=== PATIENT | female | born 1930 | race Caucasian/White ===

== ENCOUNTER → 2017-11-27 | Outpatient (CLI) | payer MEDICARE ==
[~2017-11-27] MED LIST: ACE3 PO; ACET-3017 PO; ALP5 PO; ASP325 PO; ASPI-1471 PO; ATENOLOL; CA C1TAB85 PO; CALC-635 PO; CALC500T42 PO; CYAN100015 PO; CYAN50TA3 PO; DAR100 PO; DETROL; ESTR0.62 PO; FAM20 PO; FAMO-67 PO; FLU IM; GUAI120L3 PO; HCTZ; HCTZ25 PO; IBUP-1618 PO; IBUP400T13 PO; KET10 PO; LANS15CA38 PO; MEC25 PO; MECL25TA9 PO; MELO-205 PO; MELOXICAM; MULT-885 PO; NIT100 PO; NYST15CR33 TP; PHENA200 PO; PNEU0.5D3 IM; POTA20PA10 PO; POTASSIUM; PREMARIN; PREVACID; SPIR25TA78 PO; TOLT2CAP7 PO; TOLT2TAB PO; VARI50KI IM
[2017-11-27 09:20] LABS: PLATELET COUNT, AUTOMATED 178 K/uL (150-450)
[2017-11-27 10:05] LABS: LDL CHOLESTEROL 90 mg/dl
== END ==
LOC: LAB 08:44
PROVIDERS: ATTEND Nurse Practitioner Family
DX: I10 Essential (primary) hypertension (principal)
CPT/HCPCS: 36415; 82040; 82247; 82310; 82374; 82435; 82465; 82565; 82947; 83718; 84075; 84132; 84155; 84295; 84443; 84450; 84460; 84478; 84520; 85025

== ENCOUNTER → 2017-12-10 | Outpatient (CLI) | payer MEDICARE ==
--- NOTE | 2017-12-11 13:41 | RADIOLOGY IMAGING REPORT ---
FACILITY: [facility] - [place] PATIENT NAME: Azeb Perez : 1930 MR: [id number] V: [id number] EXAM DATE: ORDERING PHYSICIAN: TEZ BEST TECHNOLOGIST: Location: [facility] [place] Patient: Azeb Perez : 1930 Visit/Account:[id number] Date of Sevice: 12/10/2017 WHOLE BODY BONE SCAN HISTORY: bone lesion right distal femur TECHNIQUE: 22.1 mCi technetium 99m HDP was injected intravenously. Delayed anterior and posterior wh ole body gamma camera images were obtained. Additional gamma camera images: Right left lateral skull COMPARISON: Two outside views of the right knee FINDINGS: Bone radiotracer activity: There is intense isotope uptake over the distal right femur and to a slig htly lesser extent distal left femur. This corresponds to a heterogeneous sclerotic lesion seen in t he distal metaphysis of the right femur on the outside study. No images of the left knee are availab le. Also noted are what appears to be degenerative type uptake over the medial aspect of both knees over the shoulders and wrists. Several small focal areas of isotope uptake over the lower cervical s pine most likely degenerative in nature Extraosseous radiotracer activity: Unremarkable. Renal and urinary collecting system activity: The right kidney appears small relative to the left IMPRESSION: There is intense uptake over the distal right femur and to lesser extent distal left femur. Two outs torsten views of the right knee demonstrate a irregular sclerotic lesion in the distal metaphysis of the right femur. Given the history of pain and increased uptake MR the knees with and without contrast r ecommended. Degenerative type uptake as described at multiple sites Report Dictated By: Vashti Downing MD at 12/11/2017 1:33 PM Report E-Signed By: Vashti Downing MD at 12/11/2017 1:37 PM WSN:[email or web address]
== END ==
LOC: NUC 01:38
PROVIDERS: ATTEND Nurse Practitioner Family
DX: M85.862 Other specified disorders of bone density and structure, left lower leg (principal); M85.861 Other specified disorders of bone density and structure, right lower leg
CPT/HCPCS: 78306; A9503

== ENCOUNTER → 2017-12-16 | Outpatient (CLI) | payer MEDICARE ==
--- NOTE | 2017-12-16 17:09 | RADIOLOGY IMAGING REPORT ---
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 In ligh t of the findings in the contralateral knee, the 4 mm lesion in the lateral femoral condyle of the le ft knee is most consistent with a benign intraosseous ganglion with reactive bone marrow edema. Report Dictated By: Cole Arndt at 12/17/2017 3:10 PM Report E-Signed By: Cole Arndt at 12/17/2017 3:11 PM ORIGINAL REPORT KNEE LEFT W W/O CONTRAST COMPARISON: Whole body bone scan 12/10/2017. Previous report described an "outside film of the right knee" which is not available. HISTORY: bilateral bony lesion - noted bone scan 12/11/17. TECHNIQUE: Pre and postcontrast multiplanar MRI of the left knee utilizing T1 weighted and fluid sens itive sequences. CONTRAST: 10 mL of MultiHance intravenously. FINDINGS: FLUID: Trace suprapatellar effusion without appreciable internal nodularity. 8 x 20 mm lobulated Syeda er's cyst with a thin internal septation. MENISCI: Suboptimal meniscal assessment due to the soft tissue mass protocol utilized. Posterior hor n of the medial meniscus appears small and irregular suggesting a horizontal tear. Lateral meniscus i s probably intact. TENDONS/LIGAMENTS: The cruciate and medial collateral ligaments, lateral collateral ligamentous comp charles and extensor mechanism are intact. The biceps and popliteus tendons are intact. MUSCLES: There is no muscle atrophy or edema. BONES/CARTILAGE: There is a 3 x 4 mm T2 hyperintense intramedullary lesion in the lateral femoral co ndyle with rim enhancement but no internal solid enhancement, and a thin collar of surrounding mild e nhancing bone marrow edema. This has an appearance which is fairly typical of an intraosseous ganglio n with surrounding bone marrow edema, but given the provided history and lack of a comparison plain f ilm, other possibilities are not excluded. There is mild focal bone marrow edema in the anterior margin of the tibial metaphysis just medial to the midline, nonspecific, possible contusion if there has been history of recent trauma. No well-defi adeline bone lesion appreciated at this site. Diffuse full-thickness lateral patellar facet articular cartilage loss with moderate subjacent subcho ndral edema. There is full-thickness cartilage loss lining the adjacent patellar median ridge. There is full-thickness lateral femoral condyle articular cartilage loss with moderate subjacent subchondra l edema and cyst formation. There is thinning and heterogeneous signal in the cartilage lining the weightbearing aspect of the me dial femoral condyle without well-defined defect. Mild medial compartment marginal spurring. OTHER: Negative. IMPRESSION: 1. 3 x 4 mm lesion in the lateral femoral condyle of the left knee. This appearance can be seen with an intraosseous ganglion with reactive bone marrow edema and conceivably this or lateral patellofemo ral osteoarthritis could account for the uptake seen at the knee on recent bone scan. Given the provi ded history and lack of plain film comparison, technically a metastasis is not excluded. 2. No other bone lesions. Mild focal bone marrow edema in the medial tibial metaphysis, possible con tusion. This corresponds to a second site of focal left knee uptake on bone scan. 3. Severe lateral patellofemoral, mild medial femoral condyle articular cartilage loss. 4. Suspected horizontal tear, posterior horn of the medial meniscus, with limited meniscal assessmen t because of scan protocol. Report Dictated By: Cole Arndt at 4:49 PM Report E-Signed By: Cole Arndt at 12/16/2017 5:05 PM WSN:[id number]
--- NOTE | 2017-12-17 15:14 | RADIOLOGY IMAGING REPORT ---
FACILITY: [facility] PATIENT NAME: Azeb Perez : 1930 MR: [id number] V: [id number] EXAM DATE: ORDERING PHYSICIAN: TEZ BEST TECHNOLOGIST: Location: [facility] - [place] Patient: Azeb Perez : 1930 Visit/Account:[id number] Date of Sevice: 12/16/2017 KNEE RIGHT W W/O CONTRAST COMPARISON: Whole body bone scan December 10, 2017 HISTORY: bilateral bony lesion - noted bone scan 12/11/17. Prior bone scan was reportedly performed for "bone lesion distal right femur". TECHNIQUE: Pre and postcontrast multiplanar MRI of the knee utilizing T1 weighted and fluid sensitive sequences, mass protocol. Study reportedly performed on December 16, 2017 but [facility]. CONTRAST: 12 mL MultiHance intravenously. FINDINGS: FLUID: Small suprapatellar effusion. No appreciable internal nodularity. Complex fluid containing Ba ker's cyst measuring 1.5 x 1.6 x 4.6 cm with fluid related to partial rupture tracking caudally from it. MENISCI: The posterior horn of the medial meniscus is small and irregular consistent with a complex tear. There is mild medial extrusion of the medial meniscal body which bows the intact MCL medially. There is thickening of the meniscal tibial ligaments without definite flipped fragment. The lateral m eniscus is intact. TENDONS/LIGAMENTS: The cruciate and medial collateral ligaments, lateral collateral ligamentous comp charles and extensor mechanism are intact. The biceps and popliteus tendons are intact. MUSCLES: There is no muscle atrophy or edema. CARTILAGE: Diffuse full-thickness patellar articular cartilage loss. 5 x 6 mm near full-thickness ca rtilage defect lining the weightbearing aspect of the medial femoral condyle without subjacent marrow signal abnormality. No significant lateral compartment defect seen. BONES: In the distal femoral metaphysis, there is an intramedullary lesion with lace-like high and lo w signal matrix characteristic of a chondroid lesion measuring 3.3 x 3.4 x 2.7 size (series 3 image 1 1 and series 5 image 13). This demonstrates diffuse solid enhancement, circumscribed margins and ther e is no surrounding bone marrow edema. This corresponds to a chondroid lesion on recent plain film co mparison and the imaging features are consistent with enchondroma. No aggressive features to suggest chondrosarcoma at this time. The chondroid lesion lies adjacent to a large degenerative geode in the anterior aspect of the lateral femoral condyle measuring up bowel 2.1 x 2.2 x 2.2 cm (series 3 image 12 and series 5 image 10). Either one or both of these findings could account for the marked uptake s een in the distal femur on recent bone scan. There are 2 additional T2 hyperintense lesions with mild internal, probably peripheral enhancement pr esent in the distal femur and proximal tibia. This includes a 5 mm oval lesion in the posterior markus n of the medial femoral condyle, and a 4 x 8 mm lesion in the anterior margin of the proximal tibial metaphysis. These are probably intraosseous ganglia or degenerative changes. OTHER: Negative. IMPRESSION: 1. 3.4 cm chondroid lesion in the distal femoral metaphysis is most consistent with a benign enchond vasquez. There are no aggressive features at this time. There is a large adjacent geode in the anterior margin of the lateral femoral condyle. Either one or both of these findings could account for the mar ked uptake seen on recent bone scan. 2. Additional subcentimeter lesions in the distal femur and proximal tibia which are most consistent with intraosseous ganglia or degenerative changes. 3. Small effusion. 4. 4.6 cm partially ruptured Payton's cyst. 5. Complex tear in the posterior horn of the medial meniscus. Report Dictated By: Cole Arndt at 12/17/2017 2:18 PM Report E-Signed By: Cole Arndt at 12/17/2017 3:09 PM WSN:[id number]
== END ==
LOC: MRI 01:28
PROVIDERS: ATTEND Nurse Practitioner Family
DX: M67.462 Ganglion, left knee (principal); R60.9 Edema, unspecified; S83.30XA Tear of articular cartilage of unspecified knee, current, initial encounter

== ENCOUNTER → 2018-09-11 | Outpatient (CLI) | payer MEDICARE ==
[~2018-09-11] MED LIST changes: -SPIR25TA78 PO; +SPIR25TA80 PO; +TRAZ50TA34 PO
[2018-09-11 09:36] LABS: PLATELET COUNT, AUTOMATED 199 K/uL (150-450)
[2018-09-11 09:55] LABS: LDL CHOLESTEROL 65 mg/dl
== END ==
LOC: LAB 09:20
PROVIDERS: ATTEND Nurse Practitioner Family
DX: I10 Essential (primary) hypertension (principal)
CPT/HCPCS: 36415; 82040; 82247; 82310; 82374; 82435; 82465; 82565; 82947; 83718; 84075; 84132; 84155; 84295; 84443; 84450; 84460; 84478; 84520; 85025

== ENCOUNTER → 2018-12-21 | Outpatient (CLI) | payer MEDICARE ==
[~2018-12-21] MED LIST changes: -TRAZ50TA34 PO; +TRAZ50TA52 PO
== END ==
LOC: LAB 09:30
PROVIDERS: ATTEND Nurse Practitioner Family
DX: I10 Essential (primary) hypertension (principal)
CPT/HCPCS: 36415; 82310; 82374; 82435; 82565; 82947; 84132; 84295; 84520

== ENCOUNTER → 2018-12-21 | Outpatient (CLI) | payer MEDICARE ==
--- NOTE | 2018-12-21 11:20 | RADIOLOGY IMAGING REPORT ---
FACILITY: [facility] - [place] PATIENT NAME: Azeb Perez : 1930 MR: [id number] V: [id number] EXAM DATE: ORDERING PHYSICIAN: TEZ BEST TECHNOLOGIST: Location: [facility] Patient: Azeb Perez : 1930 Visit/Account:[id number] Date of Sevice: 12/21/2018 DEXA Scan Clinical history: Osteopenia. Comparison: DEXA scan from 11/21/2015. LUMBAR SPINE: The bone mineral density (BMD) measured from L1-L4 correlates with a Z-score -1.1 and a T-score of - 2.5 which is osteoporosis as defined by the World Health Organization. The corresponding risk of fra cture in the lumbar spine is high compared with a young adult reference population. This value has d ecrease by 1.3 % since the prior study. More than 5% change is considered significant. HIP: Bone mineral density (BMD) measured in the Left femoral neck region correlates with a Z-score 0.8 and a T-score of -2.0 which is osteopenia as defined by the World Health Organization. The correspond ing risk of fracture in the hip is increased compared with a young adult reference population. The to alpa hip value has decreased by 1.8 % since the prior study. More than 5% change is considered signif icant. Bone mineral density (BMD) measured in the Femoral Neck region measures 0.767 g/cm2. IMPRESSION: 1. Lumbar spine: Osteoporosis. There has been decrease in the bone mineral density since the previo us exam. 2. Left femoral neck region: Osteopenia. There has been decreased in the bone mineral density of th e total hip since the previous exam. 3. Femoral Neck: Bone Mineral Density is 0.767 g/cm2 The next DEXA scan of this patient should include the following sites: L1-L4 and the left hip. FRAX? WHO Fracture Risk Assessment Tool link: <http://www.shef.ac.uk/FRAX/tool.jsp?locationValue=9> PLEASE NOTE: 1) The World Health Organization defines low BMD as follows: T-score Normal > -1 Osteopenia < -1 and > -2.5 Osteoporosis < -2.5 without fractures Established osteoporosis < -2.5 with fractures 2) In general, you may wish to consider: Diagnosis Treatment Follow-up DEXA Normal BMD Prevention 2-3 years Osteopenia Prevention/therapy 1-2 years Osteoporosis Therapy Yearly 3) Fracture risk estimated from the T-score is more accurate for vertebral fractures (often spontane ous) than for hip fractures. Report Dictated By: Raoul Villarreal at 12/21/2018 11:10 AM Report E-Signed By: Raoul Villarreal at 12/21/2018 11:14 AM DENISEN:[id number]
== END ==
LOC: RAD 10:07
PROVIDERS: ATTEND Nurse Practitioner Family
DX: M81.0 Age-related osteoporosis without current pathological fracture (principal); M85.88 Other specified disorders of bone density and structure, other site
CPT/HCPCS: 77080